=== PATIENT | female | born 1980 | race Caucasian/White ===

== ENCOUNTER 2021-02-09 07:26 | Emergency (ER) | payer SELFPAY ==
[2021-02-09] MEDS ORDERED: Ondansetron 4 MG/2 ML SDV IVPUSH ONE (07:42)
[2021-02-09] MEDS ORDERED: Dextrose 5%-Lactated Ringers 1,000 ML IV SCH (07:45)
[2021-02-09] MEDS ORDERED: Morphine 4 MG/ML Syringe IVPUSH ONE (08:04)
--- NOTE | 2021-02-09 08:16 | EDM.PDOC ---
ED HPI GENERAL MEDICAL PROBLEM - General Chief Complaint: Gastrointestinal Problem Stated Complaint: NON-STOP DRY HEAVING Time Seen by Provider: 02/09/21 07:41 - History of Present Illness INITIAL COMMENTS - FREE TEXT/NARRATIVE: CHIEF COMPLAINT(S): Vomiting HISTORY OF PRESENT ILLNESS: This is a 40-year-old woman with a past medical history of prior lap band in 2006 who comes to the emergency department with a chief complaint of vomiting. The patient states that for 2 days now she has been experiencing body aches and yesterday at her work they swabbed her for Covid which was negative. She states that she has not been able to keep down any fluids including ice. She states that she does have a runny nose and a sore throat from what she believes is her dry heaving. She denies any diarrhea. She denies any hematemesis or bilious emesis. She states that she mainly came to the emergency department because her boss told her she may need some fluids. She describes spasming abdominal pain located where her stomach is. She rates this pain as 8 out of 10 without any radiation. There is associated nausea and vomiting. She denies any aggravating or relieving factors. She denies any fever, chest pain, shortness of breath, dysuria, hematuria, vaginal bleeding or vaginal discharge. REVIEW OF SYSTEMS: Constitutional: Denies fever, chills. Eyes: Denies eye pain Ears, Nose, Mouth, & Throat: Positive for sore throat and runny nose Cardiovascular: Denies chest pain Respiratory: Denies shortness of breath Gastrointestinal: Positive for abdominal pain, nausea and vomiting. Denies diarrhea, constipation, hematochezia, hematemesis, bilious emesis Genitourinary: Denies hematuria Skin:Denies a rash MSK: Positive for body aches denies joint pain Neurological: Denies blurred vision Psychiatric: Denies depression PAST MEDICAL HISTORY: As per history of present illness and as reviewed below otherwise noncontributory. SURGICAL HISTORY: As per history of present illness and as reviewed below otherwise noncontributory. SOCIAL HISTORY: As per history of present illness and as reviewed below otherwise noncontributory. FAMILY HISTORY: As per history of present illness and as reviewed below otherwise noncontributory. EXAMINATION OF ORGAN SYSTEMS/BODY AREAS: Constitutional: Blood pressure is 115/83, heart rate 106, respiratory rate 16 with an oxygen saturation 95% on room air. Temperature 35.9 General: Young woman who does not appear to be in acute distress who is dry heaving into a emesis basin Psychiatric: Appropriate mood and affect. Eyes: No scleral icterus or conjunctival erythema ENMT: Moist mucous membranes. No pharyngeal erythema Cardiovascular: Regular, rate, and rhythm. No gallops, murmurs, or rubs. Bilateral upper extremity pulses symmetric and intact. No peripheral edema. No JVD. Respiratory: Lungs clear to auscultation bilaterally. No wheezes, rales, or rhonchi. Gastrointestinal: Soft, nondistended, tenderness to palpation in the epigastric and left upper quadrant. No rebound or guarding. Negative Leonard's and McBurney's. Normoactive bowel sounds Genitourinary: No suprapubic tenderness no CVA tenderness Musculoskeletal: Normal range of motion. Skin: No lesions or abrasions. Neurological: Alert, GCS 15 MEDICAL DECISION MAKING AND COURSE IN THE ED WITH INTERPRETATION/REVIEW OF DIAGNOSTIC STUDIES: This is a 40-year-old woman with a prior history of lap band surgery in 2006 who comes to the emergency department with 1 day of fatigue, runny nose, sore throat and inability to tolerate fluids. At this time given the pain on exam I did offer the patient obtaining a CT to evaluate any complication with her lap band. At this time the patient is afebrile and has no surgical abdomen. Therefore at this time we decided together that we would treat her symptomatically with fluids, antinausea medication including 40 mg of IV Zofran and 2 mg of morphine and reevaluate. I did discuss with patient that if she does not improve I would like to continue with laboratory analysis and CT. She was amenable to this plan. Will obtain an hCG. Laboratory: hCG is negative On reevaluation the patient was feeling much better and was able to tolerate some p.o. I did discuss with her that she was stable for discharge at this time. She was given strict return precautions had no further questions. DISPOSITION: The patient was discharged home in stable condition. The patient will follow up with primary care physician in 3 to 5 days CONDITION: Fair PROCEDURES: None FINAL IMPRESSION(S)/DIAGNOSES: 1. Acute abdominal pain Ellis Clement M.D. abdomen Pain Score (Numeric/FACES): 8 - Related Data Allergies Allergy/AdvReac Type Severity Reaction Status Date / Time lorazepam [From Ativan] AdvReac Cannot Verified 02/09/21 07:40 Remember Home Meds: Home Meds ClonazePAM [KlonoPIN] 1 tab PO ASDIRECTED PRN 10/05/15 [History] Control 1 tab PO DAILY 02/09/21 [History] Ondansetron [Zofran ODT] 4 mg PO Q6H PRN #8 tab.dis 02/09/21 [Rx] Past Medical History HEENT History: Reports: None Cardiovascular History: Reports: None Respiratory History: Reports: None Gastrointestinal History: Reports: None Genitourinary History: Reports: None [employer]ERK History: Reports: None Musculoskeletal History: Reports: None Neurological History: Reports: None Psychiatric History: Reports: None Endocrine/Metabolic History: Reports: None Hematologic History: Reports: None Immunologic History: Reports: None Oncologic (Cancer) History: Reports: None Dermatologic History: Reports: None - Infectious Disease History Infectious Disease History: Reports: None - Past Surgical History Head Surgeries/Procedures: Reports: None HEENT Surgical History: Reports: Tonsillectomy Cardiovascular Surgical History: Reports: None Respiratory Surgical History: Reports: None GI Surgical History: Reports: Bariatric Procedure Female Surgical History: Reports: D&C Endocrine Surgical History: Reports: None Neurological Surgical History: Reports: None Musculoskeletal Surgical History: Reports: None Oncologic Surgical History: Reports: None Dermatological Surgical History: Reports: None Social & Family History - Family History Family Medical History: No Pertinent Family History OBGYN: Reports: Psychiatric: Reports: Suicide Attempt Endocrine/Metabolic: Reports: Diabetes, type II Immunologic: Reports: Other (See Below) Other Immunologic Family History: wegeners disease - Tobacco Use Tobacco Use Status *Q: Never Tobacco User Second Hand Smoke Exposure: No - Caffeine Use Caffeine Use: Reports: None - Recreational Drug Use Recreational Drug Use: No ED ROS GENERAL - Review of Systems Review Of Systems: See Below ED EXAM, GENERAL - Physical Exam Exam: See Below Course - Vital Signs Last Recorded V/S: Last Vital Signs Temp 35.8 C L 02/09/21 10:07 Pulse 92 02/09/21 10:07 Resp 15 02/09/21 10:07 BP 116/77 02/09/21 10:07 Pulse Ox 100 02/09/21 10:07 - Orders/Labs/Meds Labs: Laboratory Tests 02/09/21 Range/Units 08:04 Urine HCG, Qual NEGATIVE (NEGATIVE) Meds: Medications Discontinued Medications Generic Name Dose Route Start Last Admin Trade Name Mateo PRN Reason Stop Dose Admin Dextrose/Lactated Ringer's 1,000 mls @ 999 mls/hr 02/09/21 07:45 02/09/21 08:13 Dextrose 5%-Lactated Ringers IV 999 mls/hr ASDIRECTED DIMITRIOS Administration Morphine Sulfate 2 mg 02/09/21 08:04 02/09/21 08:13 Morphine 4 Mg/Ml Syringe IVPUSH 02/09/21 08:05 2 mg ONETIME ONE Administration Ondansetron HCl 4 mg 02/09/21 07:42 02/09/21 08:13 Ondansetron 4 Mg/2 Ml Sdv IVPUSH 02/09/21 07:43 4 mg ONETIME ONE Administration Departure - Departure Time of Disposition: 09:31 Disposition: Home, Self-Care 01 Condition: Fair Clinical Impression: Vomiting - Discharge Information *PRESCRIPTION DRUG MONITORING PROGRAM REVIEWED*: No *COPY OF PRESCRIPTION DRUG MONITORING REPORT IN PATIENT CECILLE: No Prescriptions: Ondansetron [Zofran ODT] 4 mg PO Q6H PRN #8 tab.dis PRN Reason: Nausea/Vomiting Instructions: Nausea and Vomiting, Adult Referrals: PCP,None [Primary Care Provider] - Forms: ED Department Discharge Additional Instructions: You were evaluated today on an emergent basis. At this time you were able to tolerate fluids by mouth. I recommend you use Zofran as needed for vomiting. Please use Tylenol and Motrin for pain relief. If you have any worsening pain, fever or inability to eat or drink I would like you to return to the emergency department. Otherwise follow-up with your primary care physician in 3 to 5 days. [facility] [address] [place] [id number] [id number] The patient is informed of any results of their evaluation and diagnostic workup and all questions are answered. They are given discharge instructions and return precautions. The patient is stable for discharge. The patient states they understand and agree with the plan and that they will return if their symptoms get worse or if they have any new concerns. The following information is given to patients seen in the emergency department who are being discharged to home. This information is to outline your options for follow-up care. We provide all patients seen in our emergency department with a follow-up referral. The need for follow-up, as well as the timing and circumstances, are variable depending upon the specifics of your emergency department visit. If you don't have a primary care physician on staff, we will provide you with a referral. We always advise you to contact your personal physician following an emergency department visit to inform them of the circumstance of the visit and for follow-up with them and/or the need for any referrals to a consulting specialist. The emergency department will also refer you to a specialist when appropriate. This referral assures that you have the opportunity for follow-up care with a specialist. All of these measure are taken in an effort to provide you with optimal care, which includes your follow-up. Under all circumstances we always encourage you to contact your private physician who remains a resource for coordinating your care. When calling for follow-up care, please make the office aware that this follow-up is from your recent emergency room visit. If for any reason you are refused follow-up, please contact the [facility] Emergency Department at and asked to speak to the emergency department charge nurse. Sepsis Event Note (ED) - Evaluation Sepsis Screening Result: No Definite Risk
[2021-02-09 10:09] VITALS: BP 116/77; PULSE 92
== END 2021-02-09 09:59 | disposition home or self-care (01) ==
LOC: MW.ED 07:26
DX: R10.13 Epigastric pain (principal); R10.12 Left upper quadrant pain; R11.2 Nausea with vomiting, unspecified; Z88.8 Allergy status to other drugs, medicaments and biological substances
CPT/HCPCS: 81025; 96374; 96375; 99284; J2270; J2405; J7121; 99283